=== PATIENT | female | born 1980 | race Caucasian/White ===

== ENCOUNTER 2017-08-20 07:15 | Inpatient (IN) | payer BC ==
[2017-08-20] MEDS ORDERED: Acetaminophen 500 MG Tab PO ONE (08:15)
[2017-08-20] MEDS ORDERED: HYDROmorphone/Normal Saline 15 MG/30 ML PCA IV PRN (08:22)
[2017-08-20] MEDS ORDERED: Naloxone 0.4 MG/ML SDV IV PRN (08:33)
[2017-08-20] MEDS: Dextrose 5%-Lactated Ringers 1,000 ML IV SCH ×2 (08:54→13:08)
[2017-08-20] MEDS ORDERED: ceFAZolin 2 GM in Premix Bag 1 BAG IV ONE (09:15)
[2017-08-20] MEDS ORDERED: Propofol 200 MG/20 ML SDV ONE (09:23)
[2017-08-20] MEDS ORDERED: fentaNYL 250 MCG/5 ML SDV ONE ×2 (09:23→10:55)
[2017-08-20] MEDS ORDERED: Rocuronium 50 MG/5 ML Vial ONE (09:23)
[2017-08-20] MEDS ORDERED: Ondansetron 4 MG/2 ML SDV ONE (09:23)
[2017-08-20] MEDS ORDERED: Dexamethasone 4 MG/ML SDV ONE (09:23)
[2017-08-20] MEDS ORDERED: Glycopyrrolate 0.2 MG/ML 5 ML MDV ONE (09:23)
[2017-08-20] MEDS ORDERED: Succinylcholine 200 MG/10 ML MDV ONE (09:23)
[2017-08-20] MEDS ORDERED: Neostigmine Methylsulfate 1 MG/ML 5 ML Syringe ONE (09:23)
[2017-08-20] MEDS ORDERED: Ondansetron 4 MG/2 ML SDV IVPUSH ONE (13:20)
[2017-08-20] MEDS ORDERED: Ondansetron 4 MG/2 ML SDV IV PRN (14:47)
[2017-08-20] MEDS: Metoclopramide 10 MG/2 ML SDV IV SCH ×2 (17:35→21:25)
[2017-08-20] MEDS: ceFAZolin 2 GM in Premix Bag 1 BAG IV SCH (17:36)
[2017-08-21] MEDS: Metoclopramide 10 MG/2 ML SDV IV SCH ×2 (03:12→09:17)
[2017-08-21] MEDS: ceFAZolin 2 GM in Premix Bag 1 BAG IV SCH ×2 (03:12→10:48)
[2017-08-21] MEDS: Dextrose 5%-Lactated Ringers 1,000 ML IV SCH (03:15)
[2017-08-21] MEDS: HYDROmorphone 2 MG Tab PO PRN ×3 (10:11→21:14)
[2017-08-21] MEDS: Acetaminophen 325 MG Tab PO SCH ×3 (10:30→22:58)
[2017-08-21] MEDS ORDERED: Metoclopramide 10 MG/2 ML SDV IV PRN (16:00)
[2017-08-21] MEDS ORDERED: Magnesium Hydroxide 400 MG/5 ML Susp 30 ML Cup PO PRN (23:21)
[2017-08-22] MEDS: Acetaminophen 325 MG Tab PO SCH ×2 (05:41→11:17)
[2017-08-22] MEDS: HYDROmorphone 2 MG Tab PO PRN (05:43)
[2017-08-22] MEDS ORDERED: Ondansetron 4 MG Tab.DIS PO PRN (07:28)
--- NOTE | 2017-08-23 13:40 | PN ---
DATE OF SERVICE: 08/21/2017 The patient is postop day #1 from left thyroid lobectomy as well as isthmusectomy. No major problems were noted overnight. Her voice sounds are satisfactory. We will plan to go with a regular diet and oral pain medication today restart her routine Zantac. She will probably be ready for discharge home tomorrow. Troy Hoff MD Job #: [id number]
--- NOTE | 2017-08-23 13:55 | DISCH ---
FINAL DIAGNOSIS: Left thyroid nodule with nondiagnostic fine-needle aspiration (appeared to be a follicular nodule on the frozen section). SECONDARY DIAGNOSES: 1. Myopia and astigmatism, both eyes. 2. History of psoriasis. 3. History of Raynaud phenomenon. 4. Sialolithiasis. OPERATIVE PROCEDURES: Done on 08/20, thyroid exploration with left thyroid lobectomy and isthmusectomy including excision of substernal goiter. HOSPITAL COURSE: This is a 37-year-old presenting with some generally enlarged thyroid and fine-needle aspiration done x3 resulting in bloody aspirates in each case making the fine- needle aspiration nondiagnostic. Given this, the patient is to undergo a left thyroid lobectomy, and should the malignancy be identified by frozen section, a total thyroidectomy will be undertaken. The left thyroid lobectomy and isthmusectomy were accomplished. The patient did have substantial component of thyroid in the substernal location as the thyroid was diffusely quite enlarged. A final frozen section was suggestive of follicular nodules without any obvious neoplastic changes. Postoperatively, the patient has done well, voice is good, and she is tolerating her diet. She will be discharged home with Dilaudid 2 to 4 mg p.o. q.4 hours p.r.n. pain, #40, Zofran 4 mg ODT q.4 hours p.r.n. nausea, #25 with refill x1, instructed her she may take Tylenol as well and otherwise resume usual medications. Follow up with Dr. Hoff in [facility] on 09/01/2017.
--- NOTE | 2017-08-30 09:53 | OR ---
DATE OF PROCEDURE: 08/20/2017 PREOPERATIVE DIAGNOSIS: Left thyroid nodule with nondiagnostic findings on fine-needle aspiration. POSTOPERATIVE DIAGNOSIS: Left thyroid nodule with nondiagnostic findings on fine-needle aspiration (benign follicular nodule on frozen section). OPERATIVE PROCEDURE: Thyroid exploration with a left thyroid lobectomy and isthmusectomy including excision of substernal thyroid (88295). ANESTHESIA: General. ASSISTANTS: 1. Nhi Staples PA-C. 2. JERSON Mathews. INDICATION FOR PROCEDURE: This 37-year-old presenting with a radiologically suspicious nodule in the left thyroid lobe. Three attempted fine-needle aspirations of this resulted immediately getting a large amount of bloody return making the fine-needle aspiration process nondiagnostic. Given this, the patient at this point is to undergo a left thyroid lobectomy with a frozen section. Should there be evidence of malignancy on frozen section or subsequently, then a total thyroidectomy would be undertaken either concurrently or in a delayed process should malignancy be identified at a point somewhat postoperatively. Potential risks of procedure including bleeding, infection, injury to the recurrent laryngeal nerve and parathyroid glands (the consequences of those injuries have been reviewed with the patient) and the patient wishes to proceed. Likely need for thyroid replacement to avoid hypertrophy of the remaining gland was also gone over with the patient in details. DESCRIPTION OF PROCEDURE: The patient was taken to the operating room and after general endotracheal anesthesia was induced, placed a roll underneath the shoulders. The upper chest and neck areas were then prepped and draped, and transverse collar incision was made and carried down through the skin and subcutaneous tissue and platysmal layers. Subplatysmal flaps were then raised superiorly and inferiorly, and the midline fascia was then divided. The strap muscles were then dissected off the left thyroid lobe. Initially some palpitation on the right side was undertaken, but this area was intentionally not dissected such that if a subsequent operation would be required, that plane would be free of scar and adhesive changes. With the strap muscles retracted off of the left side, the inferior thyroid vein was then divided with Harmonic Scalpel. The upper pole vessels were then taken with Harmonic Scalpel as well, and at that point, the left thyroid lobe was mobilized upward. There was a substantial substernal component of this extending down roughly 4 cm below the sternum actually through the area of the junction of the aortic arch in left subclavian artery. This was then mobilized upward away from the substernal location. At that point, the inferior thyroid artery branches were taken flush with the thyroid gland, allowing reflection of the parathyroid laterally and preservation of the blood supply. At this point, the isthmus was divided to the right of midline with the Harmonic scalpel and medial dissection then continued from that point and then across onto the left side of the trachea, again with division of the attachments with Harmonic scalpel. Eventually this ressection led up to the ligament of Aleman, which was carefully freed up and the recurrent laryngeal nerve was actually quite adherent to the posterior aspect of the thyroid lobe, as there was quite a bit in the way of inflammation associated with this pathology. This was dissected free and was obviously intact and the procedure was concluded. Specimen was then delivered from the field. Frozen section was consistent with follicular nodule. The area of dissection was inspected. No further problems were noted. Strap muscles were then approximated with a 3-0 Vicryl stitch. The platysmal layer with 4-0 Vicryl stitch and the skin with a 5-0 Vicryl subcuticular stitch. Dressing was applied. The patient was taken to the recovery room in satisfactory condition. Physician assistant coach, Nhi Staples, played an essential role assisting in this case, helping to position the patient, retract structures as needed, as well as suturing and cutting sutures when indicated. Her presence improved patient's safety and decreased operative time. Troy Hoff MD Job #: [id number]
== END 2017-08-22 12:15 | disposition home or self-care (01) | DRG 404 ==
LOC: EDSTATUS 07:15 → JP.SDS 08:03 → JP.SDSSCHI 08:03 → JP.2SS 12:50
PROVIDERS: ADMIT Surgery; ATTEND Surgery
PROC: 0GBG0ZZ Excision of Left Thyroid Gland Lobe, Open Approach (ICD-10-PCS; principal; 2017-08-20)
PROC: 0GBJ0ZX Excision of Thyroid Gland Isthmus, Open Approach, Diagnostic (ICD-10-PCS; 2017-08-20)
DX: E04.1 Nontoxic single thyroid nodule (principal); H52.13 Myopia, bilateral; H52.203 Unspecified astigmatism, bilateral; E78.5 Hyperlipidemia, unspecified; L40.9 Psoriasis, unspecified; I73.00 Raynaud's syndrome without gangrene; E04.9 Nontoxic goiter, unspecified; G51.0 Bell's palsy; Z79.52 Long term (current) use of systemic steroids; Z97.5 Presence of (intrauterine) contraceptive device
CPT/HCPCS: 36415; 80053; 81025; 83735; 84100; 84443; 85027; 88307; 88331; 94762; A9270-GY; J0330; J0690; J1100; J1170; J2405; J2704; J2710; J2765; J3010; J7042